=== PATIENT | male | born 1980 | race Caucasian/White ===

== ENCOUNTER → 2017-05-18 | Outpatient (CLI) | payer MEDICAID ==
[~2017-05-18] MED LIST: ALBU8.5H IH; CABE0.5T7 PO; CHOL10005 PO; PANT20TA27 PO; PRED20TA6 PO
--- NOTE | 2017-05-18 13:51 | RADIOLOGY IMAGING REPORT ---
FACILITY: [facility] - [place] PATIENT NAME: Roby Goncalves : 1980 MR: [id number] V: [id number] EXAM DATE: ORDERING PHYSICIAN: MITCHELL HUERTA TECHNOLOGIST: Location: [facility] [place] Patient: Roby Goncalves : 1980 Visit/Account:[id number] Date of Sevice: 05/18/2017 Exam type: CHEST PA AND LAT History: Donated plasma yesterday, vomiting diarrhea cough right-sided chest pain Comparison: March 06, 2017 Findings: There is a small amount of linear scarring in the lung bases. There is no evidence of focal infiltra jimmy, pleural effusions or pulmonary edema. Cardiac silhouette is normal in size. Mild spondylotic c hanges of the thoracic spine.. IMPRESSION: There is a small amount linear scarring in the lung bases although no acute cardiopulmonary process i s seen Report Dictated By: Olivia Valdovinos MD at 05/18/2017 1:45 PM Report E-Signed By: Olivia Valdovinos MD at 05/18/2017 1:47 PM WSN:[email or web address]
== END ==
LOC: RAD 12:49
PROVIDERS: ATTEND Nurse Practitioner Family
DX: R91.8 Other nonspecific abnormal finding of lung field (principal)
CPT/HCPCS: 71046

== ENCOUNTER 2017-07-25 12:36 | Emergency (ER) | payer MEDICAID ==
[2017-07-25] MEDS ORDERED: TAMS0.4C25 PO (12:48)
[2017-07-25] MEDS ORDERED: NS(*) 0.9% 1000 ML BAG 1,000 ML IV ONE (12:55)
[2017-07-25] MEDS ORDERED: KETOROLAC 30 MG/ML VIAL IVP ONE (12:55)
[2017-07-25 13:08] LABS: PLATELET COUNT, AUTOMATED 294 K/uL (150-450)
[2017-07-25] MEDS ORDERED: IOPAMIDOL 76% 75 ML INFUS BTL 75 ML ONE (13:38)
--- NOTE | 2017-07-25 14:21 | RADIOLOGY IMAGING REPORT ---
FACILITY: PATIENT NAME: Roby Goncalves : 1980 MR: [id number] V: [id number] EXAM DATE: ORDERING PHYSICIAN: MOIRA BAIG TECHNOLOGIST: Location: [facility] - [place] Patient: Roby Goncalves : 1980 Visit/Account:[id number] Date of Sevice: 07/25/2017 EXAMINATION: CT abdomen and pelvis with IV contrast HISTORY: Right flank pain. TECHNIQUE: Axial CT images of the abdomen and pelvis were obtained with IV contrast, with coronal a nd sagittal 2D reconstructed images. One of the following dose optimization techniques was utilized in the performance of this exam: Autom ated exposure control; adjustment of the mA and/or kV according to the patient's size; or use of an i terative reconstruction technique. Specific details can be referenced in the facility's radiology C T exam operational policy. Contrast: 75 mL of IV Isovue-370. COMPARISON: None. FINDINGS: Liver: Fatty infiltration of the liver. Gallbladder and bile ducts: Negative. Spleen: Negative. Pancreas: Negative. Adrenal glands: Negative. Kidney/ureters/bladder: There is a 3 mm calculus in the distal right ureter at the UVJ. This results in only mild asymmetric prominence of the right renal collecting system and right ureter. Additional small nonobstructing calculi in both kidneys. There are 3 small stones in the mid and uppe r right ureter measuring up to 3 mm. There are 3 small nonobstructing stones in the left kidney, akua uring up to 3 mm in the lower pole. The kidneys enhance normally. 1.6 cm cyst in the mid left kidney. Bowel and peritoneum: The small bowel and colon are normal in caliber, without evidence of obstructi on or any focal inflammatory process. Normal appendix. No free fluid or free intraperitoneal air. Sma ll hiatal hernia. Lymph node assessment: Negative. Vessels: Negative. Musculoskeletal: Negative. Body wall: Negative. Lung bases: Negative. IMPRESSION: 1. 3 mm calculus in the distal right ureter at the UVJ. This results in only mild asymmetric prominen ce of the right renal collecting system and right ureter. 2. Additional small bilateral nonobstructing renal calculi. 3. Hepatic steatosis. 4. Small hiatal hernia. Report Dictated By: Octavio Chang MD at 07/25/2017 2:06 PM Report E-Signed By: Octavio Chang MD at 07/25/2017 2:18 PM WSN:[id number]
--- NOTE | 2017-07-25 14:29 | ER Report ---
History and Physical Time Seen By MD: 12:45 Hx. of Stated Complaint: kidney stones. hx of them HPI/ROS Chief concern: recurrent kidney stones HPI: 36 y/o male presents with concern for recurrent kidney stones, onset this morning. Reports history of stones x1year, with left sided stent placed 2017. Reports feeling feverish and achy x3 days, with onset of vomiting this morning. Reports right back pain, radiating to right testicle. Reports pain increases with full bladder, decreases following urination. Reports episodes of "dribbling", halting urine stream since kidney stones one year ago. Urinated this morning, observed "flakes", denies hematuria, burning with urination, incontinence. Tx: Flomax 3-4x/week for one year Review of Systems: General: Feverish, body aches Respiratory: Denies dyspnea CV: Denies shortness of breath, chest pain GI: right lower back pain, vomiting : right testicular pain. Dark urine with "flakes". Reports episodes of dribbling, halting of urine stream x1 year. Denies hematuria, burning with urination. Allergies: Coded Allergies: No Known Drug Allergies (Unverified , 07/25/17) Home Meds Active Scripts Ketorolac Tromethamine (KETOROLAC TROMETHAMINE) 10 Mg Tab, 10 MG PO Q6H, #20 TAB Prov:MOIRA BAIG 07/25/17 Hydrocodone Bit/Acetaminophen (HYDROCODON-ACETAMINOPHEN 5-325) 1 Each Tablet, 1 EACH PO Q4-6H Y for PAIN, #12 TAB Prov:MOIRA BAIG 07/25/17 Albuterol Sulfate 90 Mcg/Act (PROAIR HFA 90 MCG/ACT) 8.5 Gm Hfa.aer.ad, 2 PUFF IH Q4H Y for WHEEZING, #1 INHALER 0 Refills Prov:ANTONELLA SAM MD 03/06/17 Reported Medications Tamsulosin Hcl (FLOMAX) 0.4 Mg Cap.er.24h, 0.4 MG PO, CAP 07/25/17 Pantoprazole Sodium (PANTOPRAZOLE SODIUM) 20 Mg Tablet.dr, 20 MG PO BID, TAB.SR 03/06/17 Cabergoline (CABERGOLINE) 0.5 Mg Tablet, 0.5 MG PO QWEEK 03/06/17 Cholecalciferol (Vitamin D3) (VITAMIN D3) 1,000 Unit Tablet, 68738 UNIT PO QWEEK , TAB 03/06/17 Discontinued Scripts Prednisone (PREDNISONE) 20 Mg Tablet, 60 MG PO QDAY, #15 TAB 0 Refills Prov:ANTONELLA SAM MD 03/06/17 Past Medical/Surgical History Kidney stones December 2016; eosinophilic esophagitis; Pre-diabetic; Family hx: cancer, diabetes Reviewed Nurses Notes: Yes Old Medical Records Reviewed: No Hx Smoking: Yes Smoking Status: Current: Every Day Smoker Hx Substance Use Disorder: No Family History of: Diabetes, Cancer Constitutional Vital Sign - Last 24 Hours 07/25/17 07/25/17 07/25/17 07/25/17 12:42 12:47 12:51 13:00 Temp 99.3 Pulse 98 97 Resp 16 B/P (MAP) 129/76 129/76 (93) 116/69 (85) Pulse Ox 94 94 O2 Delivery Room Air 07/25/17 07/25/17 07/25/17 07/25/17 13:06 13:21 13:30 14:00 Pulse 99 99 B/P (MAP) 113/72 (86) 119/80 (93) Pulse Ox 93 90 07/25/17 07/25/17 07/25/17 07/25/17 14:17 14:22 14:30 14:52 Pulse ??? 80 86 B/P (MAP) 114/68 (83) Pulse Ox 92 93 97 Intake and Output 07/25/17 07/25/17 07/26/17 15:00 23:00 07:00 Intake Total 1000 ml Balance 1000 ml Physical Exam Physical Exam: General: Alert & oriented x 3, Well-developed, well-nourished, and in no acute distress. HENT: Posterior pharynx pink, lymph nodes nonpalpable, nontender bilaterally Respiratory: Clear to auscultation bilaterally. No wheezing, crackles, rales. CV: S1, S2 without murmur, regurgitation, gallops. No peripheral edema. GI: Bowel sounds normoactive all quadrants. Scattered sounds of dullness and tympany to percussion. Scattered, vague tenderness to palpation. Negative CVA tenderness. No hepatosplenomegaly. : After thorough HPI, ROS, and physical exam, the following differentials were considered: renal/uteral stones, epididymitis, biliary colic Medical Decision Making Data Points Result Diagram: 07/25/17 1249 07/25/17 1249 Laboratory Hematology Test 07/25/17 12:40 07/25/17 12:49 Urine Color Straw Urine Clarity Clear Urine pH 6.0 pH (4.8-9.5) Urine Specific [place] 1.006 Urine Protein Negative mg/dL (NEGATIVE) Urine Glucose (UA) Negative mg/dL (NEGATIVE) Urine Ketones Negative mg/dL (NEGATIVE) Urine Blood Large (NEGATIVE) Urine Nitrite Negative (NEGATIVE) Urine Bilirubin Negative (NEGATIVE) Urine Urobilinogen Negative mg/dL (0.2-1.9) Urine Leukocyte Esterase Negative (NEGATIVE) Urine RBC 12 /HPF (0-2/HPF) Urine WBC <1 /HPF (0-5/HPF) Urine Squamous Epithelial Cells None /LPF (</=FEW) Urine Bacteria Few /HPF (NONE-FEW) Urine Mucus Few /HPF (NONE-FEW) Red Blood Count 5.40 M/uL (4.00-5.60) Mean Corpuscular Volume 87.4 fL (80.0-96.0) Mean Corpuscular Hemoglobin 30.3 pg (26.0-33.0) Mean Corpuscular Hemoglobin Concent 34.6 g/dL (32.0-36.0) Red Cell Distribution Width 13.7 % (11.5-14.5) Mean Platelet Volume 7.9 fL (7.2-11.1) Neutrophils (%) (Auto) 72.5 % (39.4-72.5) Lymphocytes (%) (Auto) 11.7 % (17.6-49.6) Monocytes (%) (Auto) 11.8 % (4.1-12.4) Eosinophils (%) (Auto) 3.2 % (0.4-6.7) Basophils (%) (Auto) 0.8 % (0.3-1.4) Nucleated RBC Relative Count (auto) 0.0 /100WBC Neutrophils # (Auto) 8.2 K/uL (2.0-7.4) Lymphocytes # (Auto) 1.3 K/uL (1.3-3.6) Monocytes # (Auto) 1.3 K/uL (0.3-1.0) Eosinophils # (Auto) 0.4 K/uL (0.0-0.5) Basophils # (Auto) 0.1 K/uL (0.0-0.1) Nucleated RBC Absolute Count (auto) 0.00 K/uL Sodium Level 139 mmol/L (137-145) Potassium Level 4.1 mmol/L (3.5-5.0) Chloride Level 103 mmol/L (98-107) Carbon Dioxide Level 24 mmol/L (22-30) Blood Urea Nitrogen 10 mg/dl (9-21) Creatinine 1.00 mg/dl (0.66-1.25) Glomerular Filtration Rate Calc > 60.0 Random Glucose 86 mg/dl (75-110) Calcium Level 9.1 mg/dl (8.4-10.2) Total Bilirubin 0.5 mg/dl (0.2-1.3) Aspartate Amino Transf (AST/SGOT) 35 U/L (0-35) Alanine Aminotransferase (ALT/SGPT) 44 U/L (0-56) Alkaline Phosphatase 101 U/L (0-126) C-Reactive Protein 1.4 mg/dl (<1.0) Total Protein 8.1 gm/dl (6.3-8.2) Albumin 4.3 g/dl (3.5-5.0) Chemistry Test 07/25/17 12:40 07/25/17 12:49 Urine Color Straw Urine Clarity Clear Urine pH 6.0 pH (4.8-9.5) Urine Specific [place] 1.006 Urine Protein Negative mg/dL (NEGATIVE) Urine Glucose (UA) Negative mg/dL (NEGATIVE) Urine Ketones Negative mg/dL (NEGATIVE) Urine Blood Large (NEGATIVE) Urine Nitrite Negative (NEGATIVE) Urine Bilirubin Negative (NEGATIVE) Urine Urobilinogen Negative mg/dL (0.2-1.9) Urine Leukocyte Esterase Negative (NEGATIVE) Urine RBC 12 /HPF (0-2/HPF) Urine WBC <1 /HPF (0-5/HPF) Urine Squamous Epithelial Cells None /LPF (</=FEW) Urine Bacteria Few /HPF (NONE-FEW) Urine Mucus Few /HPF (NONE-FEW) White Blood Count 11.3 k/uL (4.5-11.0) Red Blood Count 5.40 M/uL (4.00-5.60) Hemoglobin 16.3 g/dL (14.0-18.0) Hematocrit 47.2 % (42.0-52.0) Mean Corpuscular Volume 87.4 fL (80.0-96.0) Mean Corpuscular Hemoglobin 30.3 pg (26.0-33.0) Mean Corpuscular Hemoglobin Concent 34.6 g/dL (32.0-36.0) Red Cell Distribution Width 13.7 % (11.5-14.5) Platelet Count 294 K/uL (150-450) Mean Platelet Volume 7.9 fL (7.2-11.1) Neutrophils (%) (Auto) 72.5 % (39.4-72.5) Lymphocytes (%) (Auto) 11.7 % (17.6-49.6) Monocytes (%) (Auto) 11.8 % (4.1-12.4) Eosinophils (%) (Auto) 3.2 % (0.4-6.7) Basophils (%) (Auto) 0.8 % (0.3-1.4) Nucleated RBC Relative Count (auto) 0.0 /100WBC Neutrophils # (Auto) 8.2 K/uL (2.0-7.4) Lymphocytes # (Auto) 1.3 K/uL (1.3-3.6) Monocytes # (Auto) 1.3 K/uL (0.3-1.0) Eosinophils # (Auto) 0.4 K/uL (0.0-0.5) Basophils # (Auto) 0.1 K/uL (0.0-0.1) Nucleated RBC Absolute Count (auto) 0.00 K/uL Glomerular Filtration Rate Calc > 60.0 Calcium Level 9.1 mg/dl (8.4-10.2) Total Bilirubin 0.5 mg/dl (0.2-1.3) Aspartate Amino Transf (AST/SGOT) 35 U/L (0-35) Alanine Aminotransferase (ALT/SGPT) 44 U/L (0-56) Alkaline Phosphatase 101 U/L (0-126) C-Reactive Protein 1.4 mg/dl (<1.0) Total Protein 8.1 gm/dl (6.3-8.2) Albumin 4.3 g/dl (3.5-5.0) Urinalysis Test 07/25/17 12:40 Urine Color Straw Urine Clarity Clear Urine pH 6.0 pH (4.8-9.5) Urine Specific [place] 1.006 Urine Protein Negative mg/dL (NEGATIVE) Urine Glucose (UA) Negative mg/dL (NEGATIVE) Urine Ketones Negative mg/dL (NEGATIVE) Urine Blood Large (NEGATIVE) Urine Nitrite Negative (NEGATIVE) Urine Bilirubin Negative (NEGATIVE) Urine Urobilinogen Negative mg/dL (0.2-1.9) Urine Leukocyte Esterase Negative (NEGATIVE) Urine RBC 12 /HPF (0-2/HPF) Urine WBC <1 /HPF (0-5/HPF) Urine Squamous Epithelial Cells None /LPF (</=FEW) Urine Bacteria Few /HPF (NONE-FEW) Urine Mucus Few /HPF (NONE-FEW) EKG/Imaging Imaging EXAMINATION: CT abdomen and pelvis with IV contrast HISTORY: Right flank pain. TECHNIQUE: Axial CT images of the abdomen and pelvis were obtained with IV contrast, with coronal and sagittal 2D reconstructed images. One of the following dose optimization techniques was utilized in the performance of this exam: Automated exposure control; adjustment of the mA and/ or kV according to the patient's size; or use of an iterative reconstruction technique. Specific details can be referenced in the facility's radiology CT exam operational policy. Contrast: 75 mL of IV Isovue-370. COMPARISON: None. FINDINGS: Liver: Fatty infiltration of the liver. Gallbladder and bile ducts: Negative. Spleen: Negative. Pancreas: Negative. Adrenal glands: Negative. Kidney/ureters/bladder: There is a 3 mm calculus in the distal right ureter at the UVJ. This results in only mild asymmetric prominence of the right renal collecting system and right ureter. Additional small nonobstructing calculi in both kidneys. There are 3 small stones in the mid and upper right ureter measuring up to 3 mm. There are 3 small nonobstructing stones in the left kidney, measuring up to 3 mm in the lower pole. The kidneys enhance normally. 1.6 cm cyst in the mid left kidney. Bowel and peritoneum: The small bowel and colon are normal in caliber, without evidence of obstruction or any focal inflammatory process. Normal appendix. No free fluid or free intraperitoneal air. Small hiatal hernia. Lymph node assessment: Negative. Vessels: Negative. Musculoskeletal: Negative. Body wall: Negative. Lung bases: Negative. IMPRESSION: 1. 3 mm calculus in the distal right ureter at the UVJ. This results in only mild asymmetric prominence of the right renal collecting system and right ureter. 2. Additional small bilateral nonobstructing renal calculi. 3. Hepatic steatosis. 4. Small hiatal hernia. Report Dictated By: Octavio Cahng MD at 07/25/2017 2:06 PM Report E-Signed By: Octavio Chang MD at 07/25/2017 2:18 PM ED Course/Re-evaluation ED Course Thorough HPI, ROS, and physical exam were conducted. Physical exam findings included bowel sounds normoactive all quadrants. Scattered sounds of dullness and tympany to percussion. Scattered, vague tenderness to palpation. Negative CVA tenderness. No hepatosplenomegaly. The following differentials were considered, but not limited to: renal/uteral stones, epididymitis, biliary colic. Labs performed included CBC, CMP, and UA. CBC showed mild elevation of WBC at 11.3. CMP showed elevated CRP of 1.4. UA showed Large Blood and 12 RBC, and few bacteria and mucus. CT IMPRESSION: 1. 3 mm calculus in the distal right ureter at the UVJ. This results in only mild asymmetric prominence of the right renal collecting system and right ureter. 2. Additional small bilateral nonobstructing renal calculi. 3. Hepatic steatosis. 4. Small hiatal hernia. Diagnosis of kidney stones. Patient instructed to continue taking Flomax. Prescribed Ketorolac for pain control while at work and hydrocodone for pain control at home. Patient discharged with instructions to follow up with urology. Decision to Disposition Date: Jul 25, 2017 Decision to Disposition Time: 14:52 Depart Departure Latest Vital Signs Vital Signs Date Time Temp Pulse Resp B/P (MAP) Pulse Ox O2 Delivery O2 Flow Rate FiO2 07/25/17 14:52 86 97 07/25/17 14:30 114/68 (83) 07/25/17 12:42 99.3 16 Room Air Impression: Primary Impression: Kidney stone on right side Condition: Improved Disposition: HOME OR SELF-CARE Referrals: SHER STEVENS (PCP) PRADEEP BAUGH MD, LYLE MD New Scripts Ketorolac Tromethamine (KETOROLAC TROMETHAMINE) 10 Mg Tab 10 MG PO Q6H, #20 TAB Prov: MOIRA BAIG 07/25/17 Hydrocodone Bit/Acetaminophen (HYDROCODON-ACETAMINOPHEN 5-325) 1 Each Tablet 1 EACH PO Q4-6H Y for PAIN, #12 TAB Prov: MOIRA BAIG 07/25/17 Patient Instructions: Kidney Stones (ED) Additional Instructions: Increase fluid intake. Get plenty of rest. Limit activity by pain. Follow up with Urology this week. Take the Toradol for pain when you are work and that the Hydrocodone when you are at home and not driving. Return to the ER if condition worsens. Continue taking your Flomax. MOIRA BAIG Jul 25, 2017 14:29
[2017-07-25 14:30] VITALS: BP 114/68
[2017-07-25] MEDS ORDERED: KET10 PO (14:49)
[2017-07-25] MEDS ORDERED: HYDR-385 PO (14:49)
== END 2017-07-25 15:00 | disposition home or self-care (01) ==
LOC: ER 12:44
DX: N20.0 Calculus of kidney (principal)
CPT/HCPCS: 74177; 81001; 85025; 86140; 96361; 96374; 99284; J1885; J7030; Q9967; 82040; 82247; 82310; 82374; 82435; 82565; 82947; 84075; 84132; 84155; 84295; 84450; 84460; 84520

== ENCOUNTER 2017-07-28 23:39 | Emergency (ER) | payer MEDICAID ==
[~2017-07-28 23:39] MED LIST changes: +HYDR-385 PO; +KET10 PO; +TAMS0.4C25 PO
--- NOTE | 2017-07-28 23:51 | ER Report ---
History and Physical Time Seen By MD: 23:51 Hx. of Stated Complaint: PT REPORTS THAT HE HAS A PAINFUL LUMP ON THE LEFT SIDE OF ABDOMIN. REPORTS NAUSEA WITHOUT VOMITING AND NO DIARRHEA. REPORTS DECREASED APPETITE. HPI/ROS CHIEF COMPLAINT: abdominal pain and lump on abdomen HISTORY OF PRESENT ILLNESS: This is a 36 year old male. He has an area on the left upper abdomen and onto his ribs that is tender. He was seen a few days ago for kidney stone, this seems to be improved, but has not passed in his strainer yet. He has no shortness of breath. No other chest pain. No fevers or chills. Has nausea, but no vomiting. He has poor appetite. Normal bowels. No problems urinating. Nothing makes the pain worse or better. No associated rash. Pain does radiate across the middle of the abdomen to the right ribs/abdomen. Allergies: Coded Allergies: No Known Drug Allergies (Unverified , 07/28/17) Home Meds Active Scripts Ketorolac Tromethamine (KETOROLAC TROMETHAMINE) 10 Mg Tab, 10 MG PO Q6H, #20 TAB Prov:MOIRA BAIG 07/25/17 Hydrocodone Bit/Acetaminophen (HYDROCODON-ACETAMINOPHEN 5-325) 1 Each Tablet, 1 EACH PO Q4-6H Y for PAIN, #12 TAB Prov:MOIRA BAIG 07/25/17 Albuterol Sulfate 90 Mcg/Act (PROAIR HFA 90 MCG/ACT) 8.5 Gm Hfa.aer.ad, 2 PUFF IH Q4H Y for WHEEZING, #1 INHALER 0 Refills Prov:ANTONELLA SAM MD 03/06/17 Reported Medications Tamsulosin Hcl (FLOMAX) 0.4 Mg Cap.er.24h, 0.4 MG PO, CAP 07/25/17 Pantoprazole Sodium (PANTOPRAZOLE SODIUM) 20 Mg Tablet.dr, 20 MG PO BID, TAB.SR 03/06/17 Cabergoline (CABERGOLINE) 0.5 Mg Tablet, 0.5 MG PO QWEEK 03/06/17 Cholecalciferol (Vitamin D3) (VITAMIN D3) 1,000 Unit Tablet, 96588 UNIT PO QWEEK , TAB 03/06/17 Discontinued Scripts Prednisone (PREDNISONE) 20 Mg Tablet, 60 MG PO QDAY, #15 TAB 0 Refills Prov:ANTONELLA SAM MD 03/06/17 Reviewed Nurses Notes: Yes Hx Smoking: Yes Smoking Status: Current: Every Day Smoker Hx Substance Use Disorder: No Constitutional Vital Sign - Last 24 Hours 07/28/17 07/28/17 07/29/17 07/29/17 23:46 23:47 00:00 00:15 Temp 97.8 Pulse 74 68 Resp 14 B/P (MAP) 140/84 140/84 (102) 125/71 (89) 123/74 (90) Pulse Ox 90 91 90 O2 Delivery Room Air 07/29/17 07/29/17 07/29/17 07/29/17 00:30 00:45 01:00 01:33 Pulse 63 ??? 63 B/P (MAP) 113/75 (88) 122/85 (97) 123/88 (100) 125/66 (85) Pulse Ox 91 92 93 07/29/17 07/29/17 01:45 02:00 Pulse 54 52 B/P (MAP) 116/83 (94) 119/79 (92) Pulse Ox 91 97 Physical Exam General Appearance: The patient is alert. No acute distress. Eyes: Pupils are equal, round. No pallor, injection or icterus. ENT: Mucous membranes are moist. Normal oral mucosa. Posterior oropharynx is normal. Neck: Supple and non tender. Respiratory: Lungs are clear to auscultation. Cardiovascular: Regular rate and rhythm. No murmurs, gallops or rubs. Normal capillary refill. Gastrointestinal: Abdomen is soft and non tender. Nondistended. Normal active bowel sounds. No CVA tenderness. Neurological: Alert and oriented x3. No focal neurologic deficits Skin: Warm and dry. No rashes or warmth or redness over the area. Musculoskeletal: Slight fullness of the subcutaneous tissue over the left ribs. Minimally tender to palpation. Only over the ribs, no pain over the area of the abdomen. DIFFERENTIAL DIAGNOSIS: After history and physical exam, differential diagnosis was considered for abdominal pain and some swelling of subcutaneous tissue over the left ribs. Medical Decision Making Data Points Result Diagram: 07/29/17 0034 07/29/17 0034 Laboratory Hematology Test 07/28/17 23:46 07/29/17 00:34 Urine Color Yellow Urine Clarity Clear Urine pH 6.0 pH (4.8-9.5) Urine Specific [place] 1.015 Urine Protein Negative mg/dL (NEGATIVE) Urine Glucose (UA) Negative mg/dL (NEGATIVE) Urine Ketones Negative mg/dL (NEGATIVE) Urine Blood Small (NEGATIVE) Urine Nitrite Negative (NEGATIVE) Urine Bilirubin Negative (NEGATIVE) Urine Urobilinogen Negative mg/dL (0.2-1.9) Urine Leukocyte Esterase Negative (NEGATIVE) Urine RBC 3 /HPF (0-2/HPF) Urine WBC 1 /HPF (0-5/HPF) Urine Squamous Epithelial Cells None /LPF (</=FEW) Urine Bacteria Negative /HPF (NONE-FEW) Urine Mucus None /HPF (NONE-FEW) Red Blood Count 5.25 M/uL (4.00-5.60) Mean Corpuscular Volume 87.2 fL (80.0-96.0) Mean Corpuscular Hemoglobin 29.8 pg (26.0-33.0) Mean Corpuscular Hemoglobin Concent 34.1 g/dL (32.0-36.0) Red Cell Distribution Width 13.2 % (11.5-14.5) Mean Platelet Volume 7.8 fL (7.2-11.1) Neutrophils (%) (Auto) 63.7 % (39.4-72.5) Lymphocytes (%) (Auto) 23.7 % (17.6-49.6) Monocytes (%) (Auto) 8.3 % (4.1-12.4) Eosinophils (%) (Auto) 3.0 % (0.4-6.7) Basophils (%) (Auto) 1.3 % (0.3-1.4) Nucleated RBC Relative Count (auto) 0.0 /100WBC Neutrophils # (Auto) 11.3 K/uL (2.0-7.4) Lymphocytes # (Auto) 4.2 K/uL (1.3-3.6) Monocytes # (Auto) 1.5 K/uL (0.3-1.0) Eosinophils # (Auto) 0.5 K/uL (0.0-0.5) Basophils # (Auto) 0.2 K/uL (0.0-0.1) Nucleated RBC Absolute Count (auto) 0.00 K/uL Sodium Level 139 mmol/L (137-145) Potassium Level 3.6 mmol/L (3.5-5.0) Chloride Level 105 mmol/L (98-107) Carbon Dioxide Level 23 mmol/L (22-30) Blood Urea Nitrogen 15 mg/dl (9-21) Creatinine 0.90 mg/dl (0.66-1.25) Glomerular Filtration Rate Calc > 60.0 Random Glucose 102 mg/dl (75-110) Calcium Level 9.2 mg/dl (8.4-10.2) Total Bilirubin 0.2 mg/dl (0.2-1.3) Aspartate Amino Transf (AST/SGOT) 29 U/L (0-35) Alanine Aminotransferase (ALT/SGPT) 43 U/L (0-56) Alkaline Phosphatase 75 U/L (0-126) Total Protein 7.5 gm/dl (6.3-8.2) Albumin 3.9 g/dl (3.5-5.0) Chemistry Test 07/28/17 23:46 07/29/17 00:34 Urine Color Yellow Urine Clarity Clear Urine pH 6.0 pH (4.8-9.5) Urine Specific [place] 1.015 Urine Protein Negative mg/dL (NEGATIVE) Urine Glucose (UA) Negative mg/dL (NEGATIVE) Urine Ketones Negative mg/dL (NEGATIVE) Urine Blood Small (NEGATIVE) Urine Nitrite Negative (NEGATIVE) Urine Bilirubin Negative (NEGATIVE) Urine Urobilinogen Negative mg/dL (0.2-1.9) Urine Leukocyte Esterase Negative (NEGATIVE) Urine RBC 3 /HPF (0-2/HPF) Urine WBC 1 /HPF (0-5/HPF) Urine Squamous Epithelial Cells None /LPF (</=FEW) Urine Bacteria Negative /HPF (NONE-FEW) Urine Mucus None /HPF (NONE-FEW) White Blood Count 17.8 k/uL (4.5-11.0) Red Blood Count 5.25 M/uL (4.00-5.60) Hemoglobin 15.6 g/dL (14.0-18.0) Hematocrit 45.7 % (42.0-52.0) Mean Corpuscular Volume 87.2 fL (80.0-96.0) Mean Corpuscular Hemoglobin 29.8 pg (26.0-33.0) Mean Corpuscular Hemoglobin Concent 34.1 g/dL (32.0-36.0) Red Cell Distribution Width 13.2 % (11.5-14.5) Platelet Count 284 K/uL (150-450) Mean Platelet Volume 7.8 fL (7.2-11.1) Neutrophils (%) (Auto) 63.7 % (39.4-72.5) Lymphocytes (%) (Auto) 23.7 % (17.6-49.6) Monocytes (%) (Auto) 8.3 % (4.1-12.4) Eosinophils (%) (Auto) 3.0 % (0.4-6.7) Basophils (%) (Auto) 1.3 % (0.3-1.4) Nucleated RBC Relative Count (auto) 0.0 /100WBC Neutrophils # (Auto) 11.3 K/uL (2.0-7.4) Lymphocytes # (Auto) 4.2 K/uL (1.3-3.6) Monocytes # (Auto) 1.5 K/uL (0.3-1.0) Eosinophils # (Auto) 0.5 K/uL (0.0-0.5) Basophils # (Auto) 0.2 K/uL (0.0-0.1) Nucleated RBC Absolute Count (auto) 0.00 K/uL Glomerular Filtration Rate Calc > 60.0 Calcium Level 9.2 mg/dl (8.4-10.2) Total Bilirubin 0.2 mg/dl (0.2-1.3) Aspartate Amino Transf (AST/SGOT) 29 U/L (0-35) Alanine Aminotransferase (ALT/SGPT) 43 U/L (0-56) Alkaline Phosphatase 75 U/L (0-126) Total Protein 7.5 gm/dl (6.3-8.2) Albumin 3.9 g/dl (3.5-5.0) Urinalysis Test 07/28/17 23:46 Urine Color Yellow Urine Clarity Clear Urine pH 6.0 pH (4.8-9.5) Urine Specific [place] 1.015 Urine Protein Negative mg/dL (NEGATIVE) Urine Glucose (UA) Negative mg/dL (NEGATIVE) Urine Ketones Negative mg/dL (NEGATIVE) Urine Blood Small (NEGATIVE) Urine Nitrite Negative (NEGATIVE) Urine Bilirubin Negative (NEGATIVE) Urine Urobilinogen Negative mg/dL (0.2-1.9) Urine Leukocyte Esterase Negative (NEGATIVE) Urine RBC 3 /HPF (0-2/HPF) Urine WBC 1 /HPF (0-5/HPF) Urine Squamous Epithelial Cells None /LPF (</=FEW) Urine Bacteria Negative /HPF (NONE-FEW) Urine Mucus None /HPF (NONE-FEW) EKG/Imaging Imaging CHEST/AB/PELV W/CONTRAST HISTORY: left upper abdominal pain, distention TECHNIQUE: CT chest, abdomen and pelvis with intravenous contrast. One of the following dose optimization techniques was utilized in the performance of this exam: Automated exposure control; adjustment of the mA and/ or kV according to the patient's size; or use of an iterative reconstruction technique. Specific details can be referenced in the facility's radiology CT exam operational policy. CONTRAST: 75 mL Isovue-370. COMPARISON: CT abdomen/pelvis dated July 25, 2017. FINDINGS: CHEST: Heart/vessels: Negative. Mediastinum: Small hiatal hernia. Otherwise negative. Lymph nodes: Negative. Lungs/pleura: Mild bibasilar atelectasis. Otherwise negative. Bones/soft tissues: Degenerative changes within the thoracic spine. Otherwise negative. ABDOMEN/PELVIS: Hepatobiliary: Probable hepatic steatosis. Otherwise negative. Spleen: Negative. Adrenals: Negative. Pancreas: Negative. Kidneys/: There are least 3 punctate nonobstructing calculi within the right kidney measuring up to 2-3 mm. 1 visualized punctate nonobstructing calculus within the left kidney measuring up to 2 mm. Cyst within the left kidney measuring up to 1.4 cm. To a thin 3 mm layering calculus within the bladder lumen. No hydronephrosis or hydroureter. GI: Negative. Appendix is unremarkable. No evidence for bowel obstruction. Vessels/spaces/nodes: Negative. Bones/soft tissues: Small bilateral fat-containing inguinal hernias. Otherwise negative. IMPRESSION: 1. No acute findings. 2. Bilateral nonobstructing nephrolithiasis measuring up to 3 mm on the right 2 mm left. There is also a 3 mm calculus layering within the bladder lumen. No hydronephrosis. 3. Additional incidental/chronic findings, as above. Report Dictated By: Jace Montoya MD at 07/29/2017 1:44 AM ED Course/Re-evaluation Clinical Indication for ER IV: IV Access ED Course Discussed finding of labs and imaging which are negative. Uncertain cause. Suspect muscle strain. Could be early shingles. Edema or fluids shifts. Watch to see if resolves. Decision to Disposition Date: Jul 29, 2017 Decision to Disposition Time: 02:00 Depart Departure Latest Vital Signs Vital Signs Date Time Temp Pulse Resp B/P (MAP) Pulse Ox O2 Delivery O2 Flow Rate FiO2 07/29/17 02:00 52 119/79 (92) 97 07/28/17 23:46 97.8 14 Room Air Impression: Primary Impression: Musculoskeletal pain Condition: Improved Disposition: HOME OR SELF-CARE Referrals: SHER STEVENS (PCP) Patient Instructions: Musculoskeletal Pain (ED) Additional Instructions: Watch for fevers/chills, worsening pain, vomiting, or development of a rash in the area of the pain. Use Ibuprofen as needed for pain. ANTONELLA SAM MD Jul 28, 2017 23:51
[2017-07-29] MEDS ORDERED: diphenhydrAMINE 50 MG/ML VIAL IVP ONE
[2017-07-29] MEDS ORDERED: NS(*) 0.9% 1000 ML BAG 1,000 ML IV ONE
[2017-07-29] MEDS ORDERED: IOPAMIDOL 76% 75 ML INFUS BTL 75 ML ONE (00:19)
[2017-07-29 00:49] LABS: PLATELET COUNT, AUTOMATED 284 K/uL (150-450)
--- NOTE | 2017-07-29 01:55 | RADIOLOGY IMAGING REPORT ---
FACILITY: [facility] - [place] PATIENT NAME: Roby Goncalves : 1980 MR: [id number] V: [id number] EXAM DATE: ORDERING PHYSICIAN: ANTONELLA SAM TECHNOLOGIST: Location: [facility] - [place] Patient: Roby Goncalves : 1980 Visit/Account:[id number] Date of Sevice: 07/28/2017 CHEST/AB/PELV W/CONTRAST HISTORY: left upper abdominal pain, distention TECHNIQUE: CT chest, abdomen and pelvis with intravenous contrast. One of the following dose optimization techniques was utilized in the performance of this exam: Autom ated exposure control; adjustment of the mA and/or kV according to the patient's size; or use of an i terative reconstruction technique. Specific details can be referenced in the facility's radiology C T exam operational policy. CONTRAST: 75 mL Isovue-370. COMPARISON: CT abdomen/pelvis dated July 25, 2017. FINDINGS: CHEST: Heart/vessels: Negative. Mediastinum: Small hiatal hernia. Otherwise negative. Lymph nodes: Negative. Lungs/pleura: Mild bibasilar atelectasis. Otherwise negative. Bones/soft tissues: Degenerative changes within the thoracic spine. Otherwise negative. ABDOMEN/PELVIS: Hepatobiliary: Probable hepatic steatosis. Otherwise negative. Spleen: Negative. Adrenals: Negative. Pancreas: Negative. Kidneys/: There are least 3 punctate nonobstructing calculi within the right kidney measuring up t o 2-3 mm. 1 visualized punctate nonobstructing calculus within the left kidney measuring up to 2 mm. Cyst within the left kidney measuring up to 1.4 cm. To a thin 3 mm layering calculus within the bladd er lumen. No hydronephrosis or hydroureter. GI: Negative. Appendix is unremarkable. No evidence for bowel obstruction. Vessels/spaces/nodes: Negative. Bones/soft tissues: Small bilateral fat-containing inguinal hernias. Otherwise negative. IMPRESSION: 1. No acute findings. 2. Bilateral nonobstructing nephrolithiasis measuring up to 3 mm on the right 2 mm left. There is als o a 3 mm calculus layering within the bladder lumen. No hydronephrosis. 3. Additional incidental/chronic findings, as above. Report Dictated By: Jace Montoya MD at 07/29/2017 1:44 AM Report E-Signed By: Jace Montoya MD at 07/29/2017 1:50 AM WSN:[id number]
[2017-07-29 02:30] VITALS: BP 120/72
== END 2017-07-29 02:34 | disposition home or self-care (01) ==
LOC: ER 23:42
DX: M79.1 Myalgia (principal)
CPT/HCPCS: 71260; 74177; 81001; 85025; 96361; 96374; 99284; J1200; J7030; Q9967; 82040; 82247; 82310; 82374; 82435; 82565; 82947; 84075; 84132; 84155; 84295; 84450; 84460; 84520

== ENCOUNTER → 2017-08-02 | Outpatient (REF) | payer MEDICAID | LOC: ZZSENDIN 15:00 | PROVIDERS: ATTEND Urology | DX: N21.0 Calculus in bladder (principal) | CPT/HCPCS: 82365; 88300 ==

== ENCOUNTER 2017-08-18 01:17 | Day surgery (SDC) | payer MEDICAID ==
--- NOTE | 2017-08-17 16:17 | HISTORY AND PHYSICAL ---
DATE OF ADMISSION: August 18, 2017 PREOPERATIVE DIAGNOSIS Kidney stones. HISTORY OF PRESENT ILLNESS Patient is a 36-year-old male with a history of kidney stones one year ago, who recently presented to the emergency room on July 25 with right flank pain. At that time a CT scan was performed which showed a 3 mm stone at the right ureterocolic junction. He subsequently has passed that stone two days ago, and when seen in the Urology Clinic was without discomfort or pain on the . His urinalysis was unremarkable. His stone was sent for analysis and returned 80% calcium oxalate monohydrate and 20% calcium oxalate dihydrate. A follow-up CT scan was performed on the , which showed no ureteral stones. He did have bilateral kidney stones which remained unchanged. He had two 3 x 3 mm stones in the right mid pole, and on the left side he had a total of three stones, a 1 x 1 mm in the upper pole, a 1 x 2 in the lower pole, in addition to a 4 x 2. The films were shown to the patient and discussed, and he has elected to undergo treatment of his kidney stones with extracorporeal shock wave lithotripsy and/or ureteroscopy as indicated. PAST MEDICAL HISTORY * Microprolactinoma. * Gastroesophageal reflux disease with eosinophilic esophagitis. * Sleep apnea with hypoxia. PAST SURGICAL HISTORY * Endoscopy times three. * Endoscopic stone treatment, 2016. ALLERGIES No known drug allergies. CURRENT MEDICATIONS * Protonix. * Vitamin D. * Flomax. * Ventolin. * Flovent inhaler. * Cabergoline. SOCIAL HISTORY Patient is and lives in [place], [place]. He is a smoker. REVIEW OF SYSTEMS Patient denies current shortness of breath, dyspnea on exertion, productive cough, chest pain, fevers, chills, gross hematuria, abdominal pain or change in weight. PHYSICAL EXAMINATION GENERAL: Patient is a well-developed 36-year-old white male in no acute distress. HEENT: Normocephalic, atraumatic. CHEST: Clear to auscultation bilaterally. CARDIOVASCULAR: Regular rate and rhythm. ABDOMEN: Soft, nontender. No masses are palpated. GENITOURINARY: Exam is deferred to the OR. EXTREMITIES: Exam without clubbing, cyanosis or edema. NEUROLOGIC: Exam is nonfocal. IMPRESSION A 36-year-old white male with bilateral kidney stones. PLAN We will perform right extracorporeal shock wave lithotripsy and/or ureteroscopy with possible left treatment. MTDD
[~2017-08-18] VITALS: Ht 177.8 cm; Wt 128.4 kg
[2017-08-18] MEDS ORDERED: FAMOTIDINE 20 MG TAB PO ONE (06:45)
[2017-08-18] MEDS ORDERED: ceFAZolin(*) 2GM/D5W 50ML 50 ML IVPB ONE (06:45)
[2017-08-18] MEDS ORDERED: NORMOSOL R SOLN(*) 1000 ML BAG 1,000 ML IV PRN (06:45)
[2017-08-18] MEDS ORDERED: LIDOCAINE/SOD BICARB 8.4% SYR ID ONE (06:45)
[2017-08-18] MEDS ORDERED: MIDAZOLAM 2 MG/2 ML VIAL IVP ONE (06:45)
[2017-08-18 09:11] VITALS: BP 142/86
[2017-08-18 09:31] LABS: INR 0.98
[2017-08-18] MEDS ORDERED: DEXAMETHASONE SOD 4 MG/ML VIAL ONE (10:07)
[2017-08-18] MEDS ORDERED: PROPOFOL EMUL(*) 10MG/ML 20 ML 20 ML ONE (10:07)
[2017-08-18] MEDS ORDERED: ONDANSETRON 4 MG/2 ML VIAL ONE (10:07)
[2017-08-18] MEDS ORDERED: LIDOCAINE MPF 1% 5 ML VIAL ONE (10:07)
[2017-08-18] MEDS ORDERED: fentaNYL CITR 100 MCG/2 ML AMP ONE (10:07)
--- NOTE | 2017-08-18 10:42 | RADIOLOGY IMAGING REPORT ---
FACILITY: [facility] - [place] PATIENT NAME: Roby Goncalves : 1980 MR: [id number] V: [id number] EXAM DATE: ORDERING PHYSICIAN: EZEKIEL SOLORZANO TECHNOLOGIST: Location: [facility] - [place] Patient: Roby Goncalves : 1980 Visit/Account:[id number] Date of Sevice: 08/11/2017 ABDOMEN PELVIS ESWL CYSTO W/O HISTORY: PREOP STONE LOCATION TECHNIQUE: Axial images acquired through the abdomen/pelvis. Coronal and sagittal reformatting also performed. No IV contrast administered. Dose Lowering Technique One of the following dose optimization techniques was utilized in the performance of this exam: Autom ated exposure control; adjustment of the mA and/or kV according to the patient's size; or use of an i terative reconstruction technique. Specific details can be referenced in the facility's radiology C T exam operational policy. COMPARISON: July 25, 2017 FINDINGS: Visualized lung bases: Negative. Hepatobiliary: The liver is incompletely imaged although the visualized portion is unremarkable Spleen: Spleen is incompletely imaged although the visualized portion is unremarkable Adrenals: Negative. Pancreas: Negative. Kidneys ureters and bladder: At least four nonobstructing calculi are seen in the right renal collect ing system ranging in size from 1 mm to 4 mm. At least three nonobstructing calculi are seen in the left renal collecting system ranging in size from 1 mm to 4 mm.. No evidence of hydronephrosis or hy droureter. Previously noted calculus at the right UVJ is no longer seen. Left renal cyst remains un changed Genitalia: Negative. GI: Negative. Vessels/spaces/nodes: Negative. Bones/soft tissues: There is mild loss of height of the T11 vertebral body unchanged. There are mil d spondylotic changes L5-S1. Additional findings: None pertinent. IMPRESSION: No obstructing calculi seen in both renal collecting systems. No evidence of hydronephrosis at this time Previously noted calculus at the right UVJ is no longer seen Report Dictated By: Olivia Valdovinos MD at 08/18/2017 10:30 AM Report E-Signed By: Olivia Valdovinos MD at 08/18/2017 10:38 AM WSN:[email or web address]
[2017-08-18] MEDS ORDERED: KETAMINE HCL 200 MG/20 ML MDV ONE (11:30)
[2017-08-18] MEDS ORDERED: GLYCOPYRROLATE 0.2 MG/ML SDV ONE (11:30)
[2017-08-18] MEDS ORDERED: KETOROLAC 30 MG/ML VIAL ONE (12:25)
[2017-08-18] MEDS ORDERED: APAP/HYDROCODONE 325/5 TAB ONE (13:24)
[2017-08-18 13:35] VITALS: BP 108/74
[2017-08-18] MEDS ORDERED: HYDR-4309 PO (13:35)
[2017-08-18] MEDS ORDERED: IBUP600T22 PO (13:36)
[2017-08-18] MEDS ORDERED: DOCU-416 PO (13:36)
[2017-08-18 13:42] VITALS: BP 115/84
[2017-08-18 13:45] VITALS: BP 117/80
--- NOTE | 2017-08-18 20:19 | OPERATIVE REPORT 1 ---
EVENT DATE: August 18, 2017 SURGEON: Alli Pierce MD ANESTHESIOLOGIST: Carmelo Montalvo MD ANESTHESIA: General anesthetic. PREOPERATIVE DIAGNOSIS Bilateral kidney stones. POSTOPERATIVE DIAGNOSIS Bilateral kidney stones. PROCEDURE PERFORMED Right mid pole extracorporeal shock wave lithotripsy. ESTIMATED BLOOD LOSS Minimal. INTRAVENOUS FLUID Crystalloids. DRAINS None. COMPLICATIONS None. CONDITION The patient taken to the recovery room awake, in stable condition. STATEMENT OF MEDICAL NECESSITY The patient is a 36-year-old male who was recently in the emergency room with right flank pain and found to have a 3 mm distal right stone in addition to having bilateral kidney stones. He has subsequently passed that, and stone analysis revealed this to be a calcium oxalate stone. He is now being brought to the operating room for planned upper tract treatment. Preoperative low-dose CT scan revealed two stones in the right mid pole, measuring 4 x 3 and 3 x 2 in size. He also has a few smaller stones in the left system as well. Preoperative discussion included a possible ureteroscopy and/or lithotripsy on a single site. DESCRIPTION OF PROCEDURE PERFORMED Patient was brought to the operating room. After general anesthetic was attained, he was placed supine on the lithotripsy table. Two-plane fluoroscopy was used to identify the stones in the right mid pole kidney. The stones were placed in the lithotripsy crosshairs in two planes. First, the upper-more stone was targeted. The lower one was approximately 5 mm inferior to this one. Treatment was begun at a power setting of 1 and gradually increased to a power setting of 3 over the course of the first 300 shocks. A three-minute pause was then performed, and treatment resumed. As treatment increased to a power setting of 5.5 at a rate of 90, the patient developed several runs of PVCs. Therefore, the rate was decreased to 60 per minute with resolution of these PVCs. The gradual intensity rate was ramped up to 7.5 over the course of the first 1000 shocks. Intermittent two-plane fluoroscopy was used to ensure the crosshairs remained on the stone and stone fragment pile. After approximately 1500 shocks, the treatment crosshair was brought to slightly inferior in a more common position to treatment the lower stone. The patient received a total of 3000 shocks to the mid pole stone at conclusion with no further stone fragments that could be identified. At the conclusion of treatment, the patient was awakened in the operating room and taken to the recovery area in stable condition. PLAN The plan will be to allow the patient to be discharged home today on alternating Motrin with [place], Colace, and Flomax. We will have him return to the operating room in approximately four to six weeks to address the left side. After that is done, we will proceed with metabolic evaluation. LUCAS
== END 2017-08-18 13:31 | disposition home or self-care (01) ==
LOC: OR 01:17
PROVIDERS: ATTEND Urology
DX: N20.0 Calculus of kidney (principal); K21.9 Gastro-esophageal reflux disease without esophagitis; K20.0 Eosinophilic esophagitis; R09.02 Hypoxemia; F17.210 Nicotine dependence, cigarettes, uncomplicated; D35.2 Benign neoplasm of pituitary gland; G47.33 Obstructive sleep apnea (adult) (pediatric)
CPT/HCPCS: 36415; 36416; 50590; 74176; 82948; 85610; J1100; J1885; J2001; J2250; J2405; J2704; J3010; J3490; J0690

== ENCOUNTER → 2017-08-29 | Outpatient (CLI) | payer MEDICAID ==
[~2017-08-29] MED LIST changes: +DOCU-416 PO; +HYDR-4309 PO; +IBUP600T22 PO
== END ==
LOC: LAB 16:43
PROVIDERS: ATTEND Urology
DX: N20.0 Calculus of kidney (principal); R35.0 Frequency of micturition; N39.41 Urge incontinence; K59.00 Constipation, unspecified
CPT/HCPCS: 81001; 87088

== ENCOUNTER → 2017-09-26 | Outpatient (CLI) | payer MEDICAID ==
[~2017-09-26] VITALS: Ht 177.8 cm; Wt 106.6 kg
[~2017-09-26] MED LIST changes: +FAMOTIDINE 20 MG TAB PO ONE; +MIDAZOLAM 2 MG/2 ML VIAL IVP PRN; +ceFAZolin(*) 2GM/D5W 50ML 50 ML IVPB ONE
[2017-09-26] MEDS: NORMOSOL R SOLN(*) 1000 ML BAG 1,000 ML IV PRN ×2 (08:46→09:45)
[2017-09-26] MEDS: LIDOCAINE/SOD BICARB 8.4% SYR ID ONE ×2 (08:46→09:35)
[2017-09-26 08:47] VITALS: BP 134/84
--- NOTE | 2017-09-26 11:11 | RADIOLOGY IMAGING REPORT ---
FACILITY: [facility] PATIENT NAME: Roby Goncalves : 1980 MR: [id number] V: [id number] EXAM DATE: ORDERING PHYSICIAN: EZEKIEL SOLORZANO TECHNOLOGIST: Location: [facility] Patient: Roby Goncalves : 1980 Visit/Account:[id number] Date of Sevice: 09/26/2017 ABDOMEN PELVIS ESWL CYSTO W/O HISTORY: PREOP, L ESWL, PHYSICIAN ORDERED. TECHNIQUE: Axial images acquired through the abdomen/pelvis. Coronal and sagittal reformatting also performed. No IV contrast administered. Dose Lowering Technique One of the following dose optimization techniques was utilized in the performance of this exam: Autom ated exposure control; adjustment of the mA and/or kV according to the patient's size; or use of an i terative reconstruction technique. Specific details can be referenced in the facility's radiology C T exam operational policy. COMPARISON: August 18, 2017 FINDINGS: Visualized lung bases: Small amount linear stranding in the inferior right middle lobe consistent wi th scarring versus atelectasis Hepatobiliary: Negative. Spleen: Negative. Adrenals: Negative. Pancreas: Negative. Kidneys ureters and bladder: No calculi are identified in the right renal collecting system at this t kady. 3. Nonobstructing calculi are identified in the left renal collecting system ranging in size f rom 1 to 4 mm. Is a 1.5 cm round hypodensity anterior interpolar region of the left kidney likely re presenting a cyst. There is no evidence of hydronephrosis or hydroureter. Bladder wall is mildly thickened although could be related to underdistention with urine Genitalia: Negative. GI: Small hiatal hernia appendix is visualized and does not appear inflamed Vessels/spaces/nodes: Negative. Bones/soft tissues: Mild spondylotic changes L5-S1. Mild to moderate spondylotic changes in the vis ualized lower thoracic spine Additional findings: None pertinent. IMPRESSION: No calculi are identified right renal collecting system at this time. There are three nonobstructing calculi are identified in the lower pole collecting system on the left ranging in size from 1 to 4 mm. There is no evidence of hydronephrosis or hydroureter Mild bladder wall thickening although could be related to underdistention with urine Small hiatal hernia Report Dictated By: Olivia Valdovinos MD at 09/26/2017 11:00 AM Report E-Signed By: Olivia Valdovinos MD at 09/26/2017 11:07 AM KELLYN:[email or web address]
== END ==
LOC: OR 01:16 → CT 08:00 → EDSTATUS 10:35
PROVIDERS: ATTEND Urology
DX: Z01.818 Encounter for other preprocedural examination (principal); N20.0 Calculus of kidney; K44.9 Diaphragmatic hernia without obstruction or gangrene
CPT/HCPCS: 74176

== ENCOUNTER → 2017-10-21 | Outpatient (CLI) | payer MEDICAID ==
[~2017-10-21] MED LIST changes: -FAMOTIDINE 20 MG TAB PO ONE; -MIDAZOLAM 2 MG/2 ML VIAL IVP PRN; -ceFAZolin(*) 2GM/D5W 50ML 50 ML IVPB ONE
[2017-10-21 09:52] LABS: PLATELET COUNT, AUTOMATED 304 K/uL (150-450)
[2017-10-21 12:15] LABS: LDL CHOLESTEROL 102 mg/dl
== END ==
LOC: LAB 09:35
PROVIDERS: ATTEND Nurse Practitioner Family
DX: E55.9 Vitamin D deficiency, unspecified (principal); D35.2 Benign neoplasm of pituitary gland; K20.0 Eosinophilic esophagitis; Z79.899 Other long term (current) drug therapy; R05 Cough; Z63.8 Other specified problems related to primary support group
CPT/HCPCS: 36415; 82040; 82247; 82306; 82310; 82374; 82435; 82465; 82565; 82947; 83718; 84075; 84132; 84146; 84155; 84295; 84403; 84443; 84450; 84460; 84478; 84520; 85025

== ENCOUNTER 2017-11-17 01:10 | Day surgery (SDC) | payer MEDICAID ==
--- NOTE | 2017-11-15 18:31 | HISTORY AND PHYSICAL ---
DATE OF ADMISSION: November 17, 2017 CHIEF COMPLAINT Kidney stones. HISTORY OF PRESENT ILLNESS The patient is a 37-year-old white male with a history of kidney stones who recently passed a right ureteral stone in July. He was taken to the operating room on August 18, 2017, and underwent right mid pole extracorporeal shock wave lithotripsy. He is now being returned to the operating room for followup treatment with possible ureteroscopy. PAST MEDICAL HISTORY * Sleep apnea with hypoxia. * Gastroesophageal reflux disease with eosinophilic esophagitis. * Macroprolactinemia. * Kidney stones. PAST SURGICAL HISTORY * Endoscopy times three. * Endoscopic stone treatment 2006 as well as ESWL in August 2017. ALLERGIES No known drug allergies. CURRENT MEDICATIONS * Protonix. * Vitamin D. * Ventolin. * Flomax inhaler. * Cabergoline. SOCIAL HISTORY Patient is , lives in [place], [place]. He is a smoker. REVIEW OF SYSTEMS Patient denies chest pain, shortness of breath, nausea, vomiting, fever, chills , productive cough, or gross hematuria. PHYSICAL EXAMINATION GENERAL: Patient well-developed, well-nourished male in no acute distress. HEENT: Normocephalic, atraumatic. CHEST: Clear to auscultation bilaterally. CARDIOVASCULAR: Regular rate and rhythm. ABDOMINAL: Soft, nontender. No masses are palpated. GENITOURINARY: Deferred. EXTREMITIES: Without clubbing, cyanosis, or edema. NEUROLOGIC: Nonfocal. IMPRESSION A 37-year-old white male with a history of bilateral stones. PLAN We will perform left extracorporeal shock wave lithotripsy, possibly ureteroscopy. MTDD
--- NOTE | 2017-11-15 18:36 | HISTORY AND PHYSICAL ---
DATE OF ADMISSION: [*] CHIEF COMPLAINT [*] HISTORY OF PRESENT ILLNESS [*] PAST MEDICAL HISTORY * [*] PAST SURGICAL HISTORY * [*] ALLERGIES [*] CURRENT MEDICATIONS * [*] SOCIAL HISTORY [*] FAMILY HISTORY [*] REVIEW OF SYSTEMS [*] PHYSICAL EXAMINATION [*] LABORATORY DATA [*] ASSESSMENT * [*] PLAN [*] MTDD
[~2017-11-17] VITALS: Ht 175.3 cm; Wt 108.4 kg
[2017-11-17 06:33] LABS: PLATELET COUNT, AUTOMATED 311 K/uL (150-450)
[2017-11-17] MEDS ORDERED: MIDAZOLAM 2 MG/2 ML VIAL IVP PRN (06:45)
[2017-11-17] MEDS ORDERED: LIDOCAINE/SOD BICARB 8.4% SYR ID ONE (06:45)
[2017-11-17] MEDS ORDERED: ceFAZolin(*) 2GM/D5W 50ML 50 ML IVPB ONE (06:45)
[2017-11-17] MEDS ORDERED: FAMOTIDINE 20 MG TAB PO ONE (06:45)
[2017-11-17] MEDS ORDERED: NORMOSOL R SOLN(*) 1000 ML BAG 1,000 ML IV PRN (06:45)
[2017-11-17] MEDS ORDERED: DEXAMETHASONE SOD 4 MG/ML VIAL ONE (07:08)
[2017-11-17] MEDS ORDERED: LIDOCAINE MPF 1% 5 ML VIAL ONE (07:08)
[2017-11-17] MEDS ORDERED: PROPOFOL EMUL(*) 10MG/ML 20 ML 20 ML ONE (07:08)
[2017-11-17] MEDS ORDERED: fentaNYL CITR 100 MCG/2 ML AMP ONE (07:08)
[2017-11-17] MEDS ORDERED: ONDANSETRON 4 MG/2 ML VIAL ONE (07:08)
[2017-11-17 07:10] VITALS: BP 128/81
[2017-11-17] MEDS ORDERED: KETAMINE HCL 200 MG/20 ML MDV ONE (07:11)
--- NOTE | 2017-11-17 08:23 | RADIOLOGY IMAGING REPORT ---
FACILITY: [facility] PATIENT NAME: Roby Goncalves : 1980 MR: [id number] V: [id number] EXAM DATE: ORDERING PHYSICIAN: EZEKIEL SOLORZANO TECHNOLOGIST: [facility] Patient: Roby Goncalves : 1980 Visit/Account:[id number] Date of Sevice: 11/17/2017 KUB SINGLE VIEW ABDOMEN INDICATION: Status post lithotripsy COMPARISON: September 26, 2017 CT FINDINGS: No radiographic apparent renal or ureteral calculi. No organomegaly or dilated bowel loo ps. Normal osseous structures. IMPRESSION: Normal abdomen radiograph. Report Dictated By: Jace Taylor MD at 11/17/2017 8:18 AM Report E-Signed By: Jace Taylor MD at 11/17/2017 8:20 AM WSN:[email or web address]
[2017-11-17] MEDS ORDERED: KETOROLAC 30 MG/ML VIAL ONE (08:40)
[2017-11-17] MEDS ORDERED: HYDR-4309 PO (09:12)
[2017-11-17] MEDS ORDERED: IBUP600T22 PO (09:13)
[2017-11-17] MEDS ORDERED: DOCU-416 PO (09:13)
[2017-11-17] MEDS ORDERED: TAMS0.4C70 PO (09:14)
[2017-11-17] MEDS ORDERED: APAP/HYDROCODONE 325/5 TAB ONE (09:37)
[2017-11-17 09:48] VITALS: BP 124/80
[2017-11-17 09:50] VITALS: BP 122/89
--- NOTE | 2017-11-17 11:12 | PIERCE ESWL ---
EVENT DATE: November 17, 2017 SURGEON: Alli Pierce MD ANESTHESIOLOGIST: Carmelo Montalvo MD ANESTHESIA: General. DIRECTOR EMERGENCY DEPARTMENT: Staff PREOPERATIVE DIAGNOSIS Left lower pole renal calculi. POSTOPERATIVE DIAGNOSIS Left lower pole renal calculi. PROCEDURE PERFORMED Left lower pole extracorporeal shock wave lithotripsy. ESTIMATED BLOOD LOSS Minimal. IV FLUIDS Crystalloid. DRAINS None. COMPLICATIONS None. CONDITION The patient was taken to the recovery room awake and in stable condition. STATEMENT OF MEDICAL NECESSITY The patient is a 37-year-old white male with a history of kidney stones who has undergone treatment on the right in the recent past and now being brought to the operating room for planned left lower pole as well. Preoperative CT and KUB revealed no stones in the right side. He had three stones in the left lower pole with the largest measuring 4x4 mm. DESCRIPTION OF OPERATION PERFORMED The patient was brought to the operating room after general anesthetic was obtained. He was placed supine on the lithotripsy table. His left lower pole was visualized with two plane fluoroscopy and the area of calcification was identified. These were placed in the lithotripsy cross-hairs in two planes. Treatment was begun at a power setting of 2 and gradually increased to a power setting of 3 over the first 300 shocks. A 30 minute pause was then performed and treatment resumed. He received a total of 3000 shocks to the left lower pole stones and at conclusion no further significant fragments could be identified. Intermittently throughout treatment, two point fluoroscopy was used to ensure the cross-hairs remained on the stones and stone fragment pile. He received treatment at a power setting of 7.5 for the vast majority of the treatment, increased to a power setting of 8 for the last 500 shocks. At the conclusion of treatment, the patient was awakened in the operating room and taken to the recovery area in stable condition. PLAN We will allow the patient to be discharged home today on Colace, [place], Flomax and Motrin. He will be seen in the Urology Clinic in approximately eight to ten weeks with followup CT scan to evaluate treatment results and then proceed with metabolic evaluation. LUCAS
== END 2017-11-17 09:45 | disposition home or self-care (01) ==
LOC: OR 01:10
PROVIDERS: ATTEND Urology
DX: N20.0 Calculus of kidney (principal)
CPT/HCPCS: 36415; 50590; 74018; 81001; 85025; J1100; J1885; J2001; J2250; J2405; J2704; J3010; J3490; J0690

== ENCOUNTER → 2018-02-09 | Outpatient (CLI) | payer MEDICAID ==
[~2018-02-09] MED LIST changes: +TAMS0.4C70 PO
[2018-02-09 07:01] LABS: PLATELET COUNT, AUTOMATED 349 K/uL (150-450)
== END ==
LOC: LAB 06:46
PROVIDERS: ATTEND Internal Medicine
DX: R73.03 Prediabetes (principal); R53.82 Chronic fatigue, unspecified; D35.2 Benign neoplasm of pituitary gland
CPT/HCPCS: 36415; 82040; 82247; 82310; 82374; 82435; 82565; 82947; 83036; 84075; 84132; 84146; 84155; 84270; 84295; 84403; 84443; 84450; 84460; 84520; 85025

== ENCOUNTER → 2018-02-27 | Outpatient (CLI) | payer MEDICAID ==
[~2018-02-27] MED LIST changes: -HYDR-4309 PO; +HYDR-653 PO
== END ==
LOC: LAB 17:57
PROVIDERS: ATTEND Internal Medicine
DX: D35.2 Benign neoplasm of pituitary gland (principal)
CPT/HCPCS: 36415; 84146

== ENCOUNTER → 2018-03-02 | Outpatient (CLI) | payer MEDICAID ==
--- NOTE | 2018-03-02 15:19 | RADIOLOGY IMAGING REPORT ---
FACILITY: PATIENT NAME: Roby Goncalves : 1980 MR: [id number] V: [id number] EXAM DATE: [id number] ORDERING PHYSICIAN: EZEKIEL SOLORZANO TECHNOLOGIST: Location: [facility] Patient: Roby Goncalves : 1980 Visit/Account:[id number] Date of Sevice: 03/02/2018 ABDOMEN PELVIS ESWL CYSTO W/O HISTORY: Kidney stones TECHNIQUE: Axial images acquired through the abdomen/pelvis. Coronal and sagittal reformatting also performed. No IV contrast administered.Dose Lowering Technique One of the following dose optimization techniques was utilized in the performance of this exam: Autom ated exposure control; adjustment of the mA and/or kV according to the patient's size; or use of an i terative reconstruction technique. Specific details can be referenced in the facility's radiology C T exam operational policy. COMPARISON: September 26, 2017 FINDINGS: Visualized lung bases: Negative. Hepatobiliary: Negative. Spleen: Negative. Adrenals: Negative. Pancreas: Negative. Kidneys ureters and bladder: Two nonobstructing calculi are identified in the mid and upper pole kim reena of the left kidney measuring up to 2 mm. 1.5 cm round hypodensity anterior aspect left kidney ap pears stable likely representing a cyst no calculi are identified in the right renal collecting syste m. No evidence of hydronephrosis or hydroureter Genitalia: Negative. GI: The appendix is visualized and does not appear inflamed. There is no evidence of bowel wall thi ckening or bowel obstruction. There is a small hiatal hernia present Vessels/spaces/nodes: No aggressive appearing bone lesions are seen Bones/soft tissues: Negative. Additional findings: None pertinent. IMPRESSION: There are two nonobstructing calculi in the mid and upper pole calyces the left kidney measuring up t o 2 mm No calculi identified in the right kidney Small hiatal hernia Report Dictated By: Olivia Vladovinos MD at 03/02/2018 3:10 PM Report E-Signed By: Olivia Valdovinos MD at 03/02/2018 3:15 PM WSN:[email or web address]
== END ==
LOC: CT 13:55
PROVIDERS: ATTEND Urology
DX: N20.0 Calculus of kidney (principal)
CPT/HCPCS: 74176

== ENCOUNTER → 2018-03-28 | Outpatient (CLI) | payer MEDICAID ==
[~2018-03-28] MED LIST changes: +FLUT1DIS28 IH; +PANT40TA65 PO; +RANI-320 PO
== END ==
LOC: LAB 14:18
PROVIDERS: ATTEND Urology
DX: N20.0 Calculus of kidney (principal)
CPT/HCPCS: 36415; 84550

== ENCOUNTER 2018-04-18 00:21 | Day surgery (SDC) | payer MEDICAID ==
[~2018-04-18] VITALS: Ht 177.8 cm; Wt 111.6 kg
[2018-04-18] MEDS ORDERED: PROPOFOL EMUL(*) 10MG/ML 20 ML 20 ML ONE (07:17)
[2018-04-18 08:53] LABS: PLATELET COUNT, AUTOMATED 326 K/uL (150-450)
[2018-04-18] MEDS ORDERED: NORMOSOL R SOLN(*) 1000 ML BAG 1,000 ML IV PRN (08:55)
[2018-04-18] MEDS ORDERED: LIDOCAINE/SOD BICARB 8.4% SYR ID ONE (08:55)
[2018-04-18 09:32] VITALS: BP 116/76
[2018-04-18 09:52] VITALS: BP 101/69
--- NOTE | 2018-04-18 10:06 | Short(Outpt) Discharge Summary ---
Discharge Summary Reason for Hosp/Final Diag: (1) Eosinophilic esophagitis Status: Chronic Hospital Course & Plan: EGD with biopsies and balloon dilation of GE junction completed without problems. (2) GERD (gastroesophageal reflux disease) Status: Chronic (3) Dysphagia Status: Chronic Departure Discharge to: Home, Self Care Discharge Instructions Home Meds Active Scripts Fluticasone/Salmeterol (ADVAIR 250-50 DISKUS) 1 Each Disk.w.dev, 1 EACH IH BID, #4 DISK 3 Refills Prov:LAVERNE BIRMINGHAM MD 03/14/18 Ranitidine Hcl (RANITIDINE HCL) 300 Mg Tablet, 1 TAB PO QPM, #60 TAB 6 Refills Prov:LAVERNE BIRMINGHAM MD 03/14/18 Pantoprazole Sodium (PANTOPRAZOLE SODIUM) 40 Mg Tablet.dr, 1 TAB PO DAILY, #60 TAB 6 Refills Prov:LAVERNE BIRMINGHAM MD 03/14/18 Reported Medications Cabergoline (CABERGOLINE) 0.5 Mg Tablet, 0.5 MG PO QWEEK 03/06/17 Cholecalciferol (Vitamin D3) (VITAMIN D3) 1,000 Unit Tablet, 69989 UNIT PO QWEEK, TAB 03/06/17 Diet: Regular Activity: As Tolerated Special Instructions: Your upper endoscopy was completed without problems. I didn't find anything concerning although I did perform biopsies of your esophagus to look for eosinophilic esophagitis and I dilated your lower esophagus with a balloon. My office will call you in the next several days to schedule a follow up appointment to see how you're feeling and if we need to make any adjustments to your medication regimen. Problem Qualifiers (1) GERD (gastroesophageal reflux disease): Esophagitis presence: without esophagitis Qualified Codes: K21.9 - Gastro- esophageal reflux disease without esophagitis (2) Dysphagia: Dysphagia type: esophageal phase Qualified Codes: R13.10 - Dysphagia, unspecified LAVERNE BIRMINGHAM MD Apr 18, 2018 10:06
[2018-04-18 10:12] VITALS: BP 102/65
[2018-04-18 10:42] VITALS: BP 120/86
[2018-04-18 10:46] VITALS: BP 116/79
[2018-04-18 10:47] VITALS: BP 111/84
== END 2018-04-18 11:00 | disposition home or self-care (01) ==
LOC: OR 00:21
PROVIDERS: ATTEND Surgery
DX: K20.0 Eosinophilic esophagitis (principal); R73.03 Prediabetes; F17.210 Nicotine dependence, cigarettes, uncomplicated
CPT/HCPCS: 36416; 43239; 43249; 82948; 85007; 85027; 88305; 88313; J2704; C1726

== ENCOUNTER → 2018-05-24 | Outpatient (CLI) | payer MEDICAID ==
[~2018-05-24] MED LIST changes: +SUCR1ORA17 PO
--- NOTE | 2018-05-25 17:11 | RADIOLOGY IMAGING REPORT ---
FACILITY: [facility] PATIENT NAME: NIKKI MCMILLAN : [id number] MR: [id number] V: [id number] EXAM DATE: ORDERING PHYSICIAN: SAMEER RAMIREZ TECHNOLOGIST: Indu Tatum PROCEDURE:BILATERAL DIAGNOSTIC DIGITAL MAMMOGRAM WITH CAD ASSISTED INTERPRETATION COMPARISON:Today's Right breast Ultrasound INDICATIONS:PALPABLE LUMP 4 O'CLOCK POSITION OF THE RIGHT BREAST FINDINGS: The breasts are almost entirely fatty. There is no demonstration of malignant appearing mass or calcification in either breast. Today's Right breast Ultrasound revealed no abnormality to account for patient's palpable findings in the 4 o'clock position of the Right breast therefore clinical follow-up recommended. DIAGNOSTIC CATEGORY 1--NEGATIVE. RECOMMENDATIONS: CLINICAL EVALUATION. IMPRESSION: BIRADS 1: Negative. No significant abnormality identified therefore clinical follow-up recommended for patient's palpable findings in the 4 o'clock position of the Right breast. Dictated by: Olivia Valdovinos M.D. on 05/24/2018 at 11:50 Transcribed by: CHANO on 05/24/2018 at 13:36 Approved by: Olivia Valdovinos M.D. on 05/25/2018 at 17:10 [facility]
--- NOTE | 2018-05-25 17:11 | RADIOLOGY IMAGING REPORT ---
FACILITY: [facility] PATIENT NAME: NIKKI MCMILLAN : [id number] MR: [id number] V: [id number] EXAM DATE: [id number] ORDERING PHYSICIAN: SAMEER RAMIREZ TECHNOLOGIST: Angelica Ruvalcaba RDMS PROCEDURE:US RIGHT BREAST COMPARISON:None. INDICATIONS:RT BREAST LUMP 4 O'CLOCK POSITION FINDINGS: Images of the Right breast were performed in the 3, 4, 5 & 6 o'clock positions. No sonographic abnormality is identified. Specifically no abnormality in the 4 o'clock position of the Right breast 7cm from the nipple in the location of the patient's reported finding. Today's bilateral mammogram revealed no abnormality therefore clinical follow-up recommended for patient's palpable findings. DIAGNOSTIC CATEGORY 1--NEGATIVE. RECOMMENDATIONS: CLINICAL EVALUATION. IMPRESSION: BIRADS 1: Negative. No sonographic abnormality identified of the Right breast therefore clinical follow-up recommended. Dictated by: Olivia Valdovinos M.D. on 05/24/2018 at 11:49 Transcribed by: CHANO on 05/24/2018 at 13:30 Approved by: Olivia Valdovinos M.D. on 05/25/2018 at 17:10 [facility]
== END ==
LOC: MAMO 01:12
PROVIDERS: ATTEND Nurse Practitioner Family
DX: N63.10 Unspecified lump in the right breast, unspecified quadrant (principal)
CPT/HCPCS: 77062; 77066

== ENCOUNTER → 2018-05-30 | Outpatient (CLI) | payer MEDICAID ==
--- NOTE | 2018-05-30 13:54 | RADIOLOGY IMAGING REPORT ---
FACILITY: [facility] PATIENT NAME: Roby Goncalves : 1980 MR: [id number] V: [id number] EXAM DATE: ORDERING PHYSICIAN: LAVERNE BIRMINGHAM TECHNOLOGIST: Location: [facility] Patient: Roby Goncalves : 1980 Visit/Account:[id number] Date of Sevice: 05/30/2018 CT CHEST W/O CONTRAST History: R. chest wall mass TECHNIQUE: Contiguous axial images were performed through the chest to the level of the adrenal gla nds. No IV contrast was administered. Coronal and sagittal reformatting was also performed.Dose Lower ing Technique One of the following dose optimization techniques was utilized in the performance of this exam: Autom ated exposure control; adjustment of the mA and/or kV according to the patient's size; or use of an i terative reconstruction technique. Specific details can be referenced in the facility's radiology C T exam operational policy. COMPARISON STUDIES: CT abdomen pelvis March 02, 2018. Lungs / Pleura: negative. Mediastinum/nodes: negative. Heart and vessels: negative. Musculoskeletal / Body wall: There is no demonstration of a right chest wall mass. There are spond ylotic changes in the midthoracic spine. Probable hemangioma left side of T7 vertebral body Upper abdomen: There is a small hiatal hernia IMPRESSION: No demonstration of a right chest wall mass Small hiatal hernia Report Dictated By: Olivia Valdovinos MD at 05/30/2018 1:35 PM Report E-Signed By: Olivia Valdovinos MD at 05/30/2018 1:49 PM WSN:[email or web address]
== END ==
LOC: CT 01:09
PROVIDERS: ATTEND Surgery
DX: K44.9 Diaphragmatic hernia without obstruction or gangrene (principal); M47.894 Other spondylosis, thoracic region
CPT/HCPCS: 71250

== ENCOUNTER → 2018-07-04 | Outpatient (REF) | payer MEDICAID ==
[2018-07-04 20:04] LABS: PLATELET COUNT, AUTOMATED 286 K/uL (150-450)
== END ==
PROVIDERS: ATTEND Nurse Practitioner Family
DX: R05 Cough (principal); R19.7 Diarrhea, unspecified
CPT/HCPCS: 82040; 82150; 82247; 82310; 82374; 82435; 82565; 82947; 83690; 84075; 84132; 84155; 84295; 84450; 84460; 84520; 85025

== ENCOUNTER → 2018-07-07 | Outpatient (CLI) | payer MEDICAID ==
[~2018-07-07] MED LIST changes: +BARIUM SULFATE 176 GM BTL PO ONE; +BARIUM SULFATE 340 GM POWD ONE
--- NOTE | 2018-07-07 14:25 | RADIOLOGY IMAGING REPORT ---
FACILITY: [facility] PATIENT NAME: Roby Goncalves : 1980 MR: [id number] V: [id number] EXAM DATE: ORDERING PHYSICIAN: LAVERNE BIRMINGHAM TECHNOLOGIST: Location: [facility] Patient: Roby Goncalves : 1980 Visit/Account:[id number] Date of Sevice: 07/07/2018 Exam type: ESOPHAGRAM History: Patient, history of stricture with dilatation April 18, 2018 Comparison: None. Findings: Pulmonary negative notcher film of the chest demonstrates platelike atelectasis in the left lung base Double contrast esophagram was performed with thick and thin barium and air contrast. There is a sma ll hiatal hernia present. There is mild narrowing in the distal esophagus secondary to a Schatzki ri ng. A 12 mm barium tablet did pass freely into the stomach.. No mucosal erosions were identified. Gastroesophageal reflux was not observed during the examination. The fluoroscopy dose area product w as 669.57 micro-Ureña per meter squared IMPRESSION: 1. Small hiatal hernia with mild narrowing at the distal esophagus secondary to a Schatzki ring. A 12 mm barium tablet passed freely into the stomach. No mucosal erosions identified. Gastric esophageal reflux was not observed Report Dictated By: Olivia Valdovinos MD at 07/07/2018 2:16 PM Report E-Signed By: Olivia Valdovinos MD at 07/07/2018 2:21 PM WSN:[email or web address]
== END ==
LOC: RAD 02:56
PROVIDERS: ATTEND Surgery
DX: K44.9 Diaphragmatic hernia without obstruction or gangrene (principal)
CPT/HCPCS: 74220

== ENCOUNTER → 2018-08-11 | Outpatient (CLI) | payer MEDICAID ==
[~2018-08-11] MED LIST changes: +ALB18R INH; -BARIUM SULFATE 176 GM BTL PO ONE; -BARIUM SULFATE 340 GM POWD ONE
== END ==
LOC: LAB 16:22
PROVIDERS: ATTEND Internal Medicine
DX: R73.03 Prediabetes (principal); R53.82 Chronic fatigue, unspecified; D35.2 Benign neoplasm of pituitary gland
CPT/HCPCS: 36415; 84146; 84270; 84403

== ENCOUNTER 2018-10-04 00:18 | Day surgery (SDC) | payer MEDICAID ==
[~2018-10-04] VITALS: Ht 175.3 cm; Wt 110.7 kg
[2018-10-04] MEDS ORDERED: PROPOFOL EMUL(*) 10MG/ML 20 ML 20 ML ONE (07:04)
[2018-10-04] MEDS ORDERED: LIDOCAINE/SOD BICARB 8.4% SYR ID ONE (07:50)
[2018-10-04] MEDS ORDERED: NORMOSOL R SOLN(*) 1000 ML BAG 1,000 ML IV PRN (08:00)
[2018-10-04 08:07] VITALS: BP 132/85
[2018-10-04 09:39] VITALS: BP 117/75
--- NOTE | 2018-10-04 09:49 | Short(Outpt) Discharge Summary ---
Discharge Summary Reason for Hosp/Final Diag: (1) Dysphagia Status: Chronic Hospital Course & Plan: EGD with esophageal dilation completed without problems. (2) GERD (gastroesophageal reflux disease) Status: Chronic (3) Eosinophilic esophagitis Status: Chronic Departure Discharge to: Home, Self Care Discharge Instructions Home Meds Active Scripts Sucralfate (CARAFATE) 1 Gm/10 Ml Oral.susp, 1 GM PO TID PRN for DYSPEPSIA, #120 G 3 Refills Swallow 1 gram up to three times per day as needed for esophageal discomfort Prov:LAVERNE BIRMINGHAM MD 06/26/18 Fluticasone/Salmeterol (ADVAIR 250-50 DISKUS) 1 Each Disk.w.dev, 1 EACH IH BID, #4 DISK 3 Refills Prov:LAVERNE BIRMINGHAM MD 03/14/18 Ranitidine Hcl (RANITIDINE HCL) 300 Mg Tablet, 1 TAB PO QPM, #60 TAB 6 Refills Prov:LAVERNE BIRMINGHAM MD 03/14/18 Pantoprazole Sodium (PANTOPRAZOLE SODIUM) 40 Mg Tablet.dr, 1 TAB PO DAILY, #60 TAB 6 Refills Prov:LAVERNE BIRMINGHAM MD 03/14/18 Reported Medications Albuterol Sulfate (VENTOLIN HFA) 18 Gm Inh, 2 PUFF INH Q4-6H, INH 07/11/18 Cabergoline (CABERGOLINE) 0.5 Mg Tablet, 0.5 MG PO QWEEK 03/06/17 Cholecalciferol (Vitamin D3) (VITAMIN D3) 1,000 Unit Tablet, 01218 UNIT PO QWEEK, TAB 03/06/17 Diet: Regular Activity: As Tolerated Special Instructions: Your upper endoscopy was completed without problems. I dilated your esophagus and so we'll see how your symptoms are affected by this. Stick with liquid foods such as jell-o, broth, juice, water, etc for 24 hours after this procedure to allow your esophagus to start to heal. My office will call you in the next couple of days to schedule a follow up appointment. Problem Qualifiers (1) Dysphagia: Dysphagia type: esophageal phase Qualified Codes: R13.10 - Dysphagia, unspecified (2) GERD (gastroesophageal reflux disease): Esophagitis presence: without esophagitis Qualified Codes: K21.9 - Gastro- esophageal reflux disease without esophagitis LAVERNE BIRMINGHAM MD October 04, 2018 09:49
[2018-10-04 09:52] VITALS: BP 119/77
[2018-10-04 10:15] VITALS: BP 131/79
--- NOTE | 2018-10-04 10:20 | NUR ---
pt. tolerating po intake. on ra. discharge instructions reviewed. pt. reports does not feel ready to try going from sit to stand yet.
[2018-10-04 10:48] VITALS: BP 122/89
--- NOTE | 2018-10-04 10:50 | NUR ---
DR. BIRMINGHAM AT BEDSIDE. CLARIFYING QUESTIONS FOR PT. PT. INFORMED OKAY TO GET DRESS.
[2018-10-04 10:51] VITALS: BP 128/89
== END 2018-10-04 11:03 | disposition home or self-care (01) ==
LOC: OR 00:18
PROVIDERS: ATTEND Surgery
DX: K44.9 Diaphragmatic hernia without obstruction or gangrene (principal); R73.03 Prediabetes
CPT/HCPCS: 36416; 43248; 82948; J2704; C1769

== ENCOUNTER → 2018-12-25 | Outpatient (CLI) | payer MEDICAID ==
[~2018-12-25] MED LIST changes: +CYCL10TA29 PO; +DIA5 PO
[2018-12-26 10:04] LABS: PLATELET COUNT, AUTOMATED 324 K/uL (150-450)
== END ==
LOC: LAB 16:27
PROVIDERS: ATTEND Nurse Practitioner Primary Care
DX: D35.2 Benign neoplasm of pituitary gland (principal); R25.3 Fasciculation; M25.50 Pain in unspecified joint
CPT/HCPCS: 36415; 82040; 82247; 82310; 82374; 82435; 82550; 82565; 82947; 84075; 84132; 84146; 84155; 84295; 84402; 84403; 84443; 84450; 84460; 84520; 85025; 85651; 86038; 86235; 86430

== ENCOUNTER → 2019-01-01 | Outpatient (CLI) | payer MEDICAID ==
[~2019-01-01] MED LIST changes: +GADOBENATE 529MG/1ML 15ML VIAL IVP ONE
--- NOTE | 2019-01-01 10:58 | RADIOLOGY IMAGING REPORT ---
FACILITY: [facility] PATIENT NAME: Roby Goncalves : 1980 MR: [id number] V: [id number] EXAM DATE: ORDERING PHYSICIAN: ARIELLA UP TECHNOLOGIST: Location: [facility] [place] Patient: Roby Goncalves : 1980 Visit/Account:[id number] Date of Sevice: 01/01/2019 Study: MRI of the brain without and with gadolinium contrast. Indication: Follow-up pituitary adenoma Comparison study: None Contrast used: 15 mL MultiHance gadolinium contrast Technique: Multiplanar MRI sequences were obtained through the brain before and after the administrat ion of gadolinium contrast. The examination demonstrates no evidence of acute intracranial hemorrhage. There is no evidence of ex tra-axial collection or hydrocephalus. There is no abnormal signal identified within the brain parenchyma. The pituitary gland is unremarkable in appearance. There is no evidence of abnormality of the suprase llar cistern. The pituitary infundibulum is midline. The optic chiasm is unremarkable. There is no ev idence of abnormality of the pineal gland. A diffusion-weighted sequence was performed and demonstrates no evidence of active ischemia. There is no evidence of active infarct The orbits are unremarkable. The paranasal sinuses are unremarkable Following the administration of gadolinium contrast, there is no abnormal intracranial contrast enhan cement. IMPRESSION:Unremarkable MRI of the brain without and with intravenous contrast. Specifically, there i s no significant abnormality of the pituitary gland identified. Report Dictated By: Johan Jhaveri at 01/01/2019 10:45 AM Report E-Signed By: Johan Jhaveri at 01/01/2019 10:50 AM WSN:[email or web address]
== END ==
LOC: MRI 00:43
PROVIDERS: ATTEND Nurse Practitioner Primary Care
DX: D35.2 Benign neoplasm of pituitary gland (principal)
CPT/HCPCS: 70553; A9577